=== PATIENT | male | born 1985 | race Caucasian/White ===

== ENCOUNTER 2021-12-28 12:26 | Emergency (ER) | payer OTHER, SELFPAY ==
[2021-12-28 12:27] VITALS: BP 139/92; PULSE 74; RESP 16; TEMP 36.9; O2SAT 99; BMI 25.9
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
--- NOTE | 2021-12-28 13:10 | RAD_ITS ---
STUDY: X-RAY - RIGHT TIBIA AND FIBULA REASON FOR EXAM: Male, 36 years old. Injury/Pain TECHNIQUE: 4 view(s) of the tibia and fibula were obtained. COMPARISON: None. FINDINGS: Normal visualized tibia. Nondisplaced transverse fracture through the midshaft of the fibula.. Soft tissue swelling. RAD/Tibia & Fibula 2 Views IMPRESSION: Nondisplaced transverse fracture through the midshaft of the fibula. Electronically Signed: Donis Wang MD at 13:37 EDT ,
== END 2021-12-28 14:37 | disposition home or self-care (01) ==
PROVIDERS: Emergency Provider Emergency Medicine; Visit Provider Emergency Medicine
DX: S82.424A Nondisplaced transverse fracture of shaft of right fibula, initial encounter for closed fracture (principal); X58.XXXA Exposure to other specified factors, initial encounter; Y93.39 Activity, other involving climbing, rappelling and jumping off; Y99.0 Civilian activity done for income or pay; Y92.89 Other specified places as the place of occurrence of the external cause
CPT/HCPCS: 73590; 99284